=== PATIENT | male | born 1965 | race Caucasian/White ===

== ENCOUNTER → 2019-01-20 | Outpatient (CLI) | payer MEDICAID ==
[2019-01-20 08:32] LABS: Basophils # (A) 0.1 k/uL (0-0.2); Basophils % (A) 1 %; Eosinophils # (A) 0.2 k/uL (0-0.7); Eosinophils % (A) 3 %; HGB 15.8 gm/dL (13.0-17.5); Lymphocytes # (A) 1.7 k/uL (1.0-4.8); Lymphocytes % (A) 26 %; MCH 28.2 pg (25.0-35.0); MCHC 32.3 g/dL (31.0-37.0); MCV 87.4 fL (80.0-100.0); Mean Platelet Volume 6.5; Monocytes # (A) 0.4 k/uL (0-1.0); Monocytes % (A) 7 %; Neutrophils % (A) 61 %; Platelet Count 264 k/uL (150-450); RBC 5.61 m/uL (4.30-5.90); RDW 13.6 % (11.5-15.5); WBC 6.6 k/uL (3.8-10.6)
[2019-01-20 10:56] LABS: Appearance,Urine Clear (Clear); Bilirubin,Urine Negative (Negative); Blood,Urine Negative (Negative); Color,Urine Yellow; Glucose,Urine (UA) Negative (Negative); Ketones,Urine Negative (Negative); Leukocyte Esterase,Urine Negative (Negative); Nitrite,Urine Negative (Negative); PH, Urine 6.5 (5.0-8.0); Protein,Urine Negative (Negative); Specific Gravity,Urine 1.011 (1.001-1.035); Urobilinogen,Urine <2.0 mg/dL (<2.0)
[2019-01-20 17:10] LABS: African American GFR (CKD) 98.5 (60.0-200.0); Albumin 4.3 g/dL (3.80-4.90); Albumin/Globulin Ratio 2.05 (1.60-3.17); Anion Gap 6.7 mmol/L (4.00-12.00); Calcium 8.9 mg/dL (8.7-10.3); Carbon Dioxide 27.3 mmol/L (21.6-31.8); Chol/HDL Ratio 4.33; Globulin 2.1 g/dL (1.6-3.3); LDL Cholesterol,Calculated 68.6 mg/dL (0.0-131.0); Potassium 4.5 mmol/L (3.5-5.5); Total Bilirubin 0.6 mg/dL (0.3-1.2); Total Protein 6.4 g/dL (6.2-8.2); VLDL Calculation 31.4 mg/dL (5.00-40.00)
[2019-01-20 18:22] LABS: Hemoglobin A1C 7.7 % (4.0-6.0)
== END | disposition home or self-care (01) ==
LOC: LABWHC1 07:46
PROVIDERS: ATTEND Family Medicine
DX: E11.9 Type 2 diabetes mellitus without complications (principal); Z13.220 Encounter for screening for lipoid disorders; Z12.5 Encounter for screening for malignant neoplasm of prostate; Z13.29 Encounter for screening for other suspected endocrine disorder
CPT/HCPCS: 80053; 80061; 85025; 81003; 82043; 82570; 83036; 36415; G0103

== ENCOUNTER → 2019-02-02 | Outpatient (CLI) | payer MEDICAID | END | disposition home or self-care (01) | LOC: LABWHC1 01-30 13:43 | PROVIDERS: ATTEND Nurse Practitioner | DX: R53.83 Other fatigue (principal) | CPT/HCPCS: 36415; 82040; 84270; 84403 ==

== ENCOUNTER → 2019-03-06 | Outpatient (CLI) | payer MEDICAID | END | disposition home or self-care (01) | LOC: LABWHC1 08:01 | PROVIDERS: ATTEND Family Medicine | DX: R53.83 Other fatigue (principal) | CPT/HCPCS: 36415; 82040; 84270; 84403 ==

== ENCOUNTER → 2019-03-26 | Outpatient (CLI) | payer MEDICAID ==
--- NOTE | 2019-03-26 22:31 | CONS ---
CONSULTATION DATE OF SERVICE: 03/26/2019 This 53-year-old gentleman has [facility] for obstructive sleep apnea-hypopnea syndrome. HISTORY OF PRESENT ILLNESS/SLEEP-WAKE EVALUATION: Patient was diagnosed with obstructive sleep apnea about 12 years ago. Since that time he has been on treatment with CPAP every night for the whole night. He sleeps better with the CPAP then without CPAP, but recently he started to feel more tired after awakening in the morning. His sleep schedule on working days is from 10 or 10:30 p.m. to 5:45 a.m. and on weekends from 11 or 11:30 p.m. to 8 or 8:30 a.m. No problems with falling asleep. No TV in bedroom. He sleeps usually on the side position. His snoring is severe; on CPAP practically no snoring. In the morning he wakes up tired, but he usually does not take naps; no time for that. He drinks 1 to 2 cups of coffee in the morning. [place] Sleepiness Scale is 1. PAST MEDICAL HISTORY: Positive for diabetes, hyperlipidemia. PAST SURGICAL HISTORY: Tonsillectomy. MEDICATIONS: 1. Janumet. 2. Losartan. 3. . 4. Aspirin. 5. Multivitamins. SOCIAL HISTORY: Negative for smoking. Alcohol consumption occasional. FAMILY HISTORY: Heart problems, hyperlipidemia, arthritis. REVIEW OF SYSTEMS: Tiredness after awakenings from sleep on CPAP. PHYSICAL EXAMINATION: GENERAL: A pleasant gentleman without distress. VITAL SIGNS: BP 144/87, HR 60, RR 16, height 5 feet 10 inches, weight 242.2, temperature 98.2, oxygen saturation at room air 97%. HEENT: PERRLA, EOMI. Evaluation of oropharynx showed tongue protrudes midline. Extremely low position of soft palate. Mallampati IV. NECK: Supple. No JVD. Thyroid is not palpable. Wide neck; 17-1/2 inches in circumference. LUNGS: Clear to percussion and to auscultation. Good air exchange. No wheezing or rhonchi. HEART: S1, S2 regular. No murmurs, gallops or rubs. ABDOMEN: Slightly obese. EXTREMITIES: No clubbing or cyanosis. [employer]: Awake, alert, and oriented X3. Cranial nerves 2 to 7 intact. There is no fasciculation or atrophy. noted. No focal deficits observed. IMPRESSION: 1. History of obstructive sleep apnea-hypopnea syndrome for 12 years. Patient continues to use his CPAP equipment, feeling tiredness and sleepiness sometimes after awakening in the morning while on treatment with CPAP. Extremely low position of soft palate, wide neck; obstructive sleep apnea-hypopnea syndrome. 2. Obesity. 3. Diabetes mellitus. 4. Hypertension. 5. Status post tonsillectomy. PLAN: 1. Repeat CPAP titration for re-evaluation of effective CPAP pressure at the present time. Possibly his weight has increased. 2. Losing weight. 3. Sleep hygiene with regular time in bed for at least 7-1/2 to 8 hours. 4. No driving if feeling any sleepiness. 5. Patient will get a new CPAP unit after sleep study. Thank you very much for allowing me to participate in the management of your patient. Sincerely, Connor Parada MD, PhD, FAASM Diplomat of [employer] [facility] [place] MMODL / IJN: [id number] /
== END ==
LOC: SLEEP 16:25
PROVIDERS: ATTEND Internal Medicine
DX: G47.33 Obstructive sleep apnea (adult) (pediatric) (principal); E66.9 Obesity, unspecified; E11.9 Type 2 diabetes mellitus without complications; I10 Essential (primary) hypertension; Z90.89 Acquired absence of other organs; Z99.89 Dependence on other enabling machines and devices; Z79.899 Other long term (current) drug therapy; Z79.82 Long term (current) use of aspirin
CPT/HCPCS: 99211

== ENCOUNTER → 2019-07-30 | Outpatient (CLI) | payer MEDICAID ==
[2019-07-30 09:00] LABS: Basophils # (A) 0.1 k/uL (0-0.2); Basophils % (A) 1 %; Eosinophils # (A) 0.1 k/uL (0-0.7); Eosinophils % (A) 2 %; HCT 50.9 % (39.0-53.0); HGB 16.1 gm/dL (13.0-17.5); Lymphocytes # (A) 1.6 k/uL (1.0-4.8); Lymphocytes % (A) 23 %; MCH 27.9 pg (25.0-35.0); MCHC 31.6 g/dL (31.0-37.0); MCV 88.3 fL (80.0-100.0); Mean Platelet Volume 7.4; Monocytes # (A) 0.4 k/uL (0-1.0); Monocytes % (A) 6 %; Neutrophils # (A) 4.6 k/uL (1.3-7.7); Neutrophils % (A) 66 %; Platelet Count 266 k/uL (150-450); RBC 5.76 m/uL (4.30-5.90); RDW 13.2 % (11.5-15.5)
[2019-07-30 17:35] LABS: African American GFR (CKD) 97.8 (60.0-200.0); Anion Gap 13.5 mmol/L (4.00-12.00); Calcium 9.1 mg/dL (8.7-10.3); Carbon Dioxide 23.5 mmol/L (21.6-31.8); Non-African American GFR(CKD) 84.4 (60.0-200.0); Potassium 4.3 mmol/L (3.5-5.5)
== END | disposition home or self-care (01) ==
LOC: LABWHC1 07:42
PROVIDERS: ATTEND Nurse Practitioner
DX: E11.9 Type 2 diabetes mellitus without complications (principal)
CPT/HCPCS: 36415; 80048; 85025

== ENCOUNTER → 2020-12-28 | Outpatient (CLI) | payer MEDICAID ==
[2020-12-28 17:54] LABS: Basophils # (A) 0.07 X 10*3/uL (0.00-0.10); Basophils % (A) 0.7 %; Eosinophils # (A) 0.14 X 10*3/uL (0.04-0.35); Eosinophils % (A) 1.5 %; HCT 50.7 % (39.6-50.0); HGB 15.9 g/dL (13.0-17.0); Lymphocytes # (A) 1.86 X 10*3/uL (0.90-5.00); Lymphocytes % (A) 19.8 %; MCH 27.6 pg (27.0-32.0); MCHC 31.4 g/dL (32.0-37.0); Mean Platelet Volume 9.7 fL (9.5-12.2); Monocytes # (A) 0.72 X 10*3/uL (0.20-1.00); Monocytes % (A) 7.7 %; Neutrophils # (A) 6.58 X 10*3/uL (1.80-7.70); Neutrophils % (A) 69.9 %; Platelet Count 276 X 10*3/uL (140-440); RBC 5.76 X 10*6/uL (4.40-5.60); RDW 13.6 % (11.5-14.5); WBC 9.41 X 10*3/uL (4.50-10.00)
[2020-12-28 22:27] LABS: African American GFR (CKD) 97.1 (60.0-200.0); Albumin 4.5 g/dL (3.80-4.90); Albumin/Globulin Ratio 1.61 (1.60-3.17); Anion Gap 8.5 mmol/L (4.00-12.00); Calcium 9.5 mg/dL (8.7-10.3); Carbon Dioxide 25.5 mmol/L (21.6-31.8); Chol/HDL Ratio 5.52; Globulin 2.8 g/dL (1.6-3.3); LDL Cholesterol,Calculated 92.6 mg/dL (0.0-131.0); Non-African American GFR(CKD) 83.8 (60.0-200.0); Potassium 4.4 mmol/L (3.5-5.5); Total Bilirubin 0.6 mg/dL (0.2-1.2); Total Protein 7.3 g/dL (6.2-8.2); VLDL Calculation 38.4 mg/dL (5.00-40.00)
[2020-12-28 22:34] LABS: PSA Annual Screen 1.4 ng/mL (0.0-4.0)
== END | disposition home or self-care (01) ==
LOC: LABWHC1 07:56
PROVIDERS: ATTEND Nurse Practitioner
DX: E11.9 Type 2 diabetes mellitus without complications (principal)
CPT/HCPCS: 80061; 80053; 85025; 36415; G0103

== ENCOUNTER 2021-05-04 10:21 | Emergency (ER) | payer MEDICAID ==
[2021-05-04 10:35] VITALS: BP 166/95; PULSE 66; RESP 18; TEMP 98.7
[2021-05-04] MEDS ORDERED: DIPH,PERTUS(ACELL)TETVAC-LF 0.5 ML VIAL IM ONE (11:13)
--- NOTE | 2021-05-04 11:24 | ED ---
General Adult HPI - General Chief complaint: Wound/Laceration Stated complaint: finger lac/IHS Time Seen by Provider: 05/04/21 11:05 Source: patient, RN notes reviewed, old records reviewed Mode of arrival: ambulatory - History of Present Illness Initial comments: Well-appearing 55-year-old male presents to the emergency room with complaints of being stuck with a scalpel during a debridement of a patient's wound. He states that this happened about 10:30 was accidental as he reached in toward the performing physician and scalpel punctured the distal tip of the left middle f josh. Patient did have gloves on. His tetanus shot status is unclear. There is no active bleeding at this time. He has full range of motion and sensation intact. He denies any other injuries. -: hour(s) (1) Location: left, upper extremity (Middle finger distal tip finger pad) Severity scale (1-10): 0 Quality: aching Consistency: intermittent Improves with: none Worsens with: none Associated Symptoms: denies other symptoms Treatments Prior to Arrival: none - Related Data Home Medications Medication Instructions Recorded Confirmed Loratadine-Pseudoeph 10-240 mg 1 tab PO DAILY PRN 04/30/17 05/09/17 [Claritin-D 24 Hour] Previous Rx's Medication Instructions Recorded metFORMIN HCL [Glucophage] 500 mg PO BID #30 tab 04/30/17 Cephalexin [Keflex] 500 mg PO Q6HR 5 Days #20 cap 05/04/21 Allergies Allergy/AdvReac Type Severity Reaction Status Date / Time No Known Allergies Allergy Verified 05/04/21 10:35 Review of Systems ROS Statement: Those systems with pertinent positive or pertinent negative responses have been documented in the HPI. ROS Other: All systems not noted in ROS Statement are negative. Past Medical History Past Medical History: Diabetes Mellitus Additional Past Medical History / Comment(s): seasonal allergies. History of Any Multi-Drug Resistant Organisms: None Reported Past Surgical History: Tonsillectomy Past Psychological History: No Psychological Hx Reported Smoking Status: Never smoker Past Alcohol Use History: Occasional, Rare Past Drug Use History: None Reported General Exam General appearance: alert, in no apparent distress Head exam: Present: atraumatic, normocephalic, normal inspection Eye exam: Present: normal appearance, EOMI Respiratory exam: Present: normal lung sounds bilaterally. Absent: respiratory distress, wheezes, rales, rhonchi, stridor Cardiovascular Exam: Present: regular rate, normal rhythm, normal heart sounds. Absent: systolic murmur, diastolic murmur, rubs, gallop, clicks Extremities exam: Present: normal capillary refill Left Hand Wrist exam: Present: other (Puncture wound from a scalpel to the left middle finger distal tip of the finger pad approximately 4 mm) Vascular: Present: normal capillary refill. Absent: vascular compromise Neurological exam: Present: alert, oriented X3, normal gait Psychiatric exam: Present: normal affect, normal mood Skin exam: Present: warm, dry, intact, normal color. Absent: rash, cyanosis, diaphoretic, pallor Course Vital Signs 05/04/21 10:31 Temperature 98.7 F Pulse Rate 66 Respiratory 18 Rate Blood Pressure 166/95 O2 Sat by Pulse 97 Oximetry Medical Decision Making - Medical Decision Making 55-year-old male that was stuck with a scalpel during a wound debridement with the physician this morning at 10:30. He states that the wound did bleed right away. He states that the procedure had already begun and the scalpel was contaminated. He was wearing gloves. Unsure if his tetanus shot is up-to-date so he was updated at this visit. He does have a history of diabetes. Patient irrigated the wound in the emergency room with warm soapy water. Bacitracin dressing was placed onto the wound. Directed to soak the wound in warm soapy water twice a day. Labs were drawn from the patient per policy after penetrating injury. Patient will be placed on prophylactic Keflex and directed to follow up with occupational health. He did decline HIV prophylaxis at this time. Case discussed with Dr. Riley Day Clinical Impression: Wound due to scalpel Disposition: HOME SELF-CARE Condition: Good Instructions (If sedation given, give patient instructions): Puncture Wound (ED) Additional Instructions: Soak the finger in warm soapy water twice a day. Watch for signs and symptoms of infection. Take antibiotics as prescribed. Follow-up with occupational health. Have your district loss prevention manager the patient for consent for testing. Prescriptions: Cephalexin [Keflex] 500 mg PO Q6HR 5 Days #20 cap Is patient prescribed a controlled substance at d/c from ED?: No Referrals: Ivanna Schaeffer DO [Primary Care Provider] - 1-2 days Time of Disposition: 11:42
[2021-05-04] MEDS ORDERED: BACITRACIN OINT 1 EACH PACKET TOPICAL ONE (11:47)
== END 2021-05-04 12:08 | disposition home or self-care (01) ==
LOC: EC 10:21
DX: S61.233A Puncture wound without foreign body of left middle finger without damage to nail, initial encounter (principal); E11.9 Type 2 diabetes mellitus without complications; Z79.84 Long term (current) use of oral hypoglycemic drugs; W26.8XXA Contact with other sharp object(s), not elsewhere classified, initial encounter
CPT/HCPCS: 90715

== ENCOUNTER → 2021-07-03 | Outpatient (CLI) | payer MEDICAID, OTHER ==
[2021-07-03 14:36] LABS: Basophils # (A) 0.08 X 10*3/uL (0.00-0.10); Basophils % (A) 0.9 %; Eosinophils # (A) 0.16 X 10*3/uL (0.04-0.35); Eosinophils % (A) 1.9 %; HCT 50.7 % (39.6-50.0); HGB 16.2 g/dL (13.0-17.0); Immature Grans, Automated 0.3 %; Lymphocytes # (A) 2.06 X 10*3/uL (0.90-5.00); Lymphocytes % (A) 23.9 %; MCH 27.9 pg (27.0-32.0); MCV 87.3 fL (80.0-97.0); Mean Platelet Volume 9.8 fL (9.5-12.2); Monocytes % (A) 8.1 %; NRBC Per 100 WBC 0 /100 WBCS (0.0-0.0); Neutrophils # (A) 5.58 X 10*3/uL (1.80-7.70); Neutrophils % (A) 64.9 %; Platelet Count 277 X 10*3/uL (140-440); RBC 5.81 X 10*6/uL (4.40-5.60); RDW 13.2 % (11.5-14.5); WBC 8.61 X 10*3/uL (4.50-10.00)
[2021-07-03 14:53] LABS: ALT 35 U/L (10-49); AST 19 U/L (14-35); African American GFR (CKD) 87.8 (60.0-200.0); Albumin 4.3 g/dL (3.8-4.9); Albumin/Globulin Ratio 1.58 (1.60-3.17); Alkaline Phosphatase 87 U/L (41-126); BUN/Creat Ratio 15.37 Ratio (12.00-20.00); Blood Urea Nitrogen 16.6 mg/dL (9.0-27.0); Calcium 8.9 mg/dL (8.7-10.3); Carbon Dioxide 21.3 mmol/L (20.0-27.5); Chloride 106 mmol/L (96-109); Chol/HDL Ratio 5.33 Ratio; Globulin 2.7 g/dL (1.6-3.3); Glucose 137 mg/dL (70-110); LDL Cholesterol,Calculated 92.9 mg/dL (0.0-131.0); Non-African American GFR(CKD) 75.8 (60.0-200.0); Potassium 4.1 mmol/L (3.5-5.5); Sodium 140 mmol/L (135-145)
== END | disposition home or self-care (01) ==
LOC: LABWHC1 07:45
PROVIDERS: ATTEND Family Medicine
DX: I10 Essential (primary) hypertension (principal); E11.9 Type 2 diabetes mellitus without complications; E78.2 Mixed hyperlipidemia
CPT/HCPCS: 36415; 80053; 80061; 84443; 85025